=== PATIENT | male | born 1950 | race Caucasian/White ===

== ENCOUNTER 2021-05-25 12:25 | Emergency (ER) | payer MEDICARE, OTHER ==
[2021-05-25] MEDS ORDERED: Lidocaine 1% PF 2 ML SDV INJECT ONE (12:46)
--- NOTE | 2021-05-25 12:49 | EDM.PDOC ---
ED HPI GENERAL MEDICAL PROBLEM - General Chief Complaint: Laceration Stated Complaint: CUT WRIST Time Seen by Provider: 05/25/21 12:28 Source of Information: Reports: Patient History Limitations: Reports: No Limitations - History of Present Illness INITIAL COMMENTS - FREE TEXT/NARRATIVE: Patient is a 70-year-old male who presents today for a laceration to his left wrist. He cut it with a sheet rock. He is able to still fully move the hand and has no other lacerations. He denies any fever chills or drainage from area. States last tetanus was over 10 years ago. left wrist Pain Score (Numeric/FACES): 3 - Related Data Allergies Allergy/AdvReac Type Severity Reaction Status Date / Time No Known Allergies Allergy Verified 05/25/21 12:29 Home Meds: Home Meds Losartan [Cozaar] 1 tab PO DAILY 05/25/21 [History] amLODIPine [Norvasc] 1 tab PO DAILY 05/25/21 [History] Past Medical History HEENT History: Reports: Impaired Vision Cardiovascular History: Reports: Hypertension Respiratory History: Reports: None Gastrointestinal History: Reports: None Genitourinary History: Reports: None Musculoskeletal History: Reports: None Neurological History: Reports: None Psychiatric History: Reports: None Endocrine/Metabolic History: Reports: None Hematologic History: Reports: None Immunologic History: Reports: None Oncologic (Cancer) History: Reports: None Dermatologic History: Reports: None - Infectious Disease History Infectious Disease History: Reports: None - Past Surgical History Head Surgeries/Procedures: Reports: None HEENT Surgical History: Reports: None Cardiovascular Surgical History: Reports: None Respiratory Surgical History: Reports: None GI Surgical History: Reports: None Male Surgical History: Reports: None Endocrine Surgical History: Reports: None Neurological Surgical History: Reports: None Musculoskeletal Surgical History: Reports: None Oncologic Surgical History: Reports: None Dermatological Surgical History: Reports: None Social & Family History - Family History Family Medical History: No Pertinent Family History - Caffeine Use Caffeine Use: Reports: None - Recreational Drug Use Recreational Drug Use: No ED ROS GENERAL - Review of Systems Review Of Systems: See Below Constitutional: Reports: No Symptoms HEENT: Reports: No Symptoms Respiratory: Reports: No Symptoms Cardiovascular: Reports: No Symptoms Endocrine: Reports: No Symptoms GI/Abdominal: Reports: No Symptoms : Reports: No Symptoms Musculoskeletal: Reports: No Symptoms Skin: Reports: Other (laceration) Neurological: Reports: No Symptoms Psychiatric: Reports: No Symptoms Hematologic/Lymphatic: Reports: No Symptoms Immunologic: Reports: No Symptoms ED EXAM, SKIN/RASH Exam: See Below Exam Limited By: No Limitations General Appearance: Alert, WD/WN, No Apparent Distress Respiratory/Chest: No Respiratory Distress Neurological: Alert, Oriented Location, Skin: Other (wrist lac 3cm) ED SKIN PROCEDURES - Laceration/Wound Repair Left Wrist Appearance: Superficial Anesthetic Type: Local Local Anesthesia - Lidocaine (Xylocaine): 1% Plain Local Anesthetic Volume: 2cc Skin Prep: Chlorhexidine (Hibiciens) Saline Irrigation (cc's): 1,000 Exploration/Debridement/Repair: Wound Explored Closed with: Sutures Lac/Wound length In cm: 3 Suture Size: 5-0 # of Sutures: 3 Course - Vital Signs Last Recorded V/S: Last Vital Signs Temp 95.6 F L 05/25/21 12:27 Pulse 90 05/25/21 12:27 Resp 18 05/25/21 12:27 BP 130/94 H 05/25/21 12:27 Pulse Ox 95 05/25/21 12:27 - Orders/Labs/Meds Meds: Medications Discontinued Medications Generic Name Dose Route Start Last Admin Trade Name Terryq PRN Reason Stop Dose Admin Lidocaine HCl 2 ml 05/25/21 12:46 Lidocaine 1% Pf 2 Ml Sdv INJECT 05/25/21 12:47 ONETIME ONE Departure - Departure Time of Disposition: 13:20 Disposition: Home, Self-Care 01 Condition: Good Clinical Impression: Laceration of wrist - Discharge Information *PRESCRIPTION DRUG MONITORING PROGRAM REVIEWED*: Not Applicable *COPY OF PRESCRIPTION DRUG MONITORING REPORT IN PATIENT MONIKA: Not Applicable Instructions: Laceration Care, Adult Forms: ED Department Discharge Additional Instructions: You were seen today for a cut to your wrist we repaired it with 3 sutures that you will need to have removed the next 7 to 10 days. Please normal by your primary doctor if you cannot you can return to the ER and we will remove them here. Please apply bacitracin to the area or any other antibiotic ointment for the next 5 days twice a day. If you have any other concerning signs or symptoms please feel free to return to the ER otherwise follow-up to primary care physician. The following information is given to patients seen in the emergency department who are being discharged to home. This information is to outline your options for follow-up care. We provide all patients seen in our emergency department with a follow-up referral. The need for follow-up, as well as the timing and circumstances, are variable depending upon the specifics of your emergency department visit. If you don't have a primary care physician on staff, we will provide you with a referral. We always advise you to contact your personal physician following an emergency department visit to inform them of the circumstance of the visit and for follow-up with them and/or the need for any referrals to a consulting specialist. The emergency department will also refer you to a specialist when appropriate. This referral assures that you have the opportunity for follow-up care with a specialist. All of these measure are taken in an effort to provide you with optimal care, which includes your follow-up. Under all circumstances we always encourage you to contact your private physician who remains a resource for coordinating your care. When calling for follow-up care, please make the office aware that this follow-up is from your recent emergency room visit. If for any reason you are refused follow-up, please contact the [facility] Emergency Department at and asked to speak to the emergency department charge nurse. Please follow up with your primary care physician. If you do not have a primary care physician, see below: [facility] [address] [place] [id number] [facility] [address] [place] [id number] Sepsis Event Note (ED) - Evaluation Sepsis Screening Result: No Definite Risk - Focused Exam Vital Signs: Vital Signs Temp Pulse Resp BP Pulse Ox 05/25/21 12:27 95.6 F L 90 18 130/94 H 95 - Assessment/Plan Plan: Patient is a 70-year-old male who presents today for laceration to his left wrist. We repaired it with a 2 sutures in patient will follow up to have them removed patient given return precautions.
[2021-05-25] MEDS ORDERED: Diphtheria,Pertussis(Acell),Tetanus Vaccine 0.5 ML Syringe ONE (13:26)
[2021-05-25 13:52] VITALS: BP 129/96; PULSE 91
== END 2021-05-25 13:34 | disposition home or self-care (01) ==
LOC: MW.ED 12:25
DX: S61.512A Laceration without foreign body of left wrist, initial encounter (principal); I10 Essential (primary) hypertension; Z23 Encounter for immunization; Z79.899 Other long term (current) drug therapy; W26.8XXA Contact with other sharp object(s), not elsewhere classified, initial encounter
CPT/HCPCS: 12002; 90471; 90715; 99282-25

== ENCOUNTER 2022-01-17 09:22 | Emergency (ER) | payer MEDICARE ==
[2022-01-17] MEDS ORDERED: Sodium Chloride 0.9% 1,000 ML IV ONE (10:10)
[2022-01-17 10:54] LABS: CARBON DIOXIDE,CO2 22.7 mmol/L (21.0-32.0)
[2022-01-17 11:20] VITALS: BP 142/93; PULSE 76
== END 2022-01-17 11:20 | disposition home or self-care (01) ==
LOC: MW.ED 09:22
DX: T67.5XXA Heat exhaustion, unspecified, initial encounter (principal); I10 Essential (primary) hypertension; Z20.822 Contact with and (suspected) exposure to COVID-19
CPT/HCPCS: 36415; 80053; 82947; 83605; 83735; 84484; 85025; 93005; 96360; 99284; J7030; U0002; 93010

== ENCOUNTER 2025-05-03 18:08 | Emergency (ER) | payer MEDICARE ==
[2025-05-03 20:24] VITALS: BP 142/95; PULSE 85
== END 2025-05-03 20:24 | disposition home or self-care (01) ==
LOC: MW.ED 18:08
DX: S61.001A Unspecified open wound of right thumb without damage to nail, initial encounter (principal); I10 Essential (primary) hypertension; Z75.3 Unavailability and inaccessibility of health-care facilities; Z79.899 Other long term (current) drug therapy; W26.8XXA Contact with other sharp object(s), not elsewhere classified, initial encounter
CPT/HCPCS: 99282; 99283